=== PATIENT | male | born 2005 | race Caucasian/White ===

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

== ENCOUNTER 2023-09-16 15:14 | Emergency (ER) | payer OTHER ==
[~2023-09-16] VITALS: Ht 167.6 cm; Wt 74.8 kg
[2023-09-16] MEDS ORDERED: CYCL10 (15:31)
[2023-09-16] MEDS ORDERED: IBUP600 (15:31)
[2023-09-16] MEDS ORDERED: MIRALAX1714 (15:31)
[2023-09-16] MEDS ORDERED: DIAZ5 (15:31)
[2023-09-16 16:32] VITALS: BP 105/77
== END 2023-09-16 16:33 | disposition home or self-care (01) ==
LOC: ER 15:14
DX: K64.9 Unspecified hemorrhoids (principal); Z79.899 Other long term (current) drug therapy
CPT/HCPCS: 99282

== ENCOUNTER 2023-11-17 16:29 | Emergency (ER) | payer OTHER ==
[~2023-11-17] VITALS: Ht 167.6 cm; Wt 72.6 kg
[~2023-11-17 16:29] MED LIST changes: +CYCL10; +DIAZ5; +IBUP600; +MIRALAX1714
[2023-11-17 17:06] LABS: BASOPHILS ABSOLUTE AUTO 0.03 K/mm3 (0.00-0.23); BASOPHILS PERCENT AUTO 1 % (0-2); EOSINOPHILS ABSOLUTE AUTO 0.07 K/mm3 (0.00-0.68); EOSINOPHILS PERCENT AUTO 2 % (0-6); Hematocrit 38.3 % (37.0-53.0); Hemoglobin 12.4 g/dL (13.5-17.5); IMMATURE GRAN ABSOLUTE AUTO 0.01 K/mm3 (0.00-0.10); IMMATURE GRAN PERCENT AUTO 0 % (0-1); LYMPHOCYTES ABSOLUTE AUTO 1.08 K/mm3 (0.84-5.20); LYMPHOCYTES PERCENT AUTO 26 % (21-46); MONOCYTES ABSOLUTE AUTO 0.24 K/mm3 (0.16-1.47); MONOCYTES PERCENT AUTO 6 % (4-13); Mean Corpuscular HGB 29.3 pg (26.0-34.0); Mean Corpuscular HGB Conc 32.4 g/dL (31.5-36.5); Mean Corpuscular Volume 91 fL (80-100); Mean Platelet Volume 10.1 fL (9.1-12.4); NEUTROPHILS ABSOLUTE AUTO 2.68 K/mm3 (1.96-9.15); NEUTROPHILS PERCENT AUTO 65 % (41-73); Platelet Count 135 K/mm3 (150-400); RDW Standard Deviation 53.3 fL (35.1-46.3); Red Blood Cell Count 4.23 M/mm3 (4.30-5.90); White Blood Cell Count 4.11 K/mm3 (4.00-11.30)
[2023-11-17 17:30] LABS: Albumin/Globulin Ratio 1.1 (0.8-1.8); Bilirubin, Total 0.7 mg/dL (0.1-1.0); Bun/Creatinine Ratio 22.5 (12.0-20.0); Calcium, Blood 9.6 mg/dL (8.5-10.1); Creatinine, Blood 0.58 mg/dL (0.60-1.20); Globulin, Blood 3.6 g/dL (2.2-4.0); Total Protein, Blood 7.6 g/dL (6.4-8.2)
[2023-11-17] MEDS ORDERED: Lactated Ringer's 1,000 ML IV ONE (18:15)
[2023-11-17 19:11] LABS: Influenza A, PCR NEGATIVE (NEGATIVE); Influenza B, PCR NEGATIVE (NEGATIVE); Resp Syncytial Virus, PCR NEGATIVE (NEGATIVE); SARS-Cov-2 (COVID-19) PCR, MMC NEGATIVE (NEGATIVE)
[2023-11-17] MEDS ORDERED: Lidocaine 2% Jelly Uro-Jet UR ONE (20:20)
[2023-11-17 20:35] LABS: Source, Urine Clean Catch
[2023-11-17 20:37] LABS: Bilirubin, Urine Neg (Neg); Blood, Urine 4+ (Neg); Glucose Qualitative, Urine Neg (Neg); Ketones, Urine 2+ (Neg); Leukocyte Esterase, Urine Neg (Neg); Nitrite, Urine Neg (Neg); Protein, Urine Neg (Neg); Urobilinogen, Urine NORM (Normal)
[2023-11-17 20:54] LABS: Appearance, Urine Clear (Clear); Color, Urine Pale Yellow (P-Yellow)
[2023-11-17 20:56] LABS: Bacteria Many /hpf; Squamous Epithelial Cells Rare /hpf (Few)
[2023-11-17 23:30] VITALS: BP 136/88
== END 2023-11-17 23:41 | disposition short-term general hospital (02) ==
LOC: ER 16:29
PROVIDERS: Emergency Medicine; Student in an Organized Health Care Education/Training Program
DX: R33.9 Retention of urine, unspecified (principal); R53.1 Weakness; D64.9 Anemia, unspecified; D69.6 Thrombocytopenia, unspecified; Q27.39 Arteriovenous malformation, other site; Z79.899 Other long term (current) drug therapy; Z99.3 Dependence on wheelchair
CPT/HCPCS: 0241U; 51702; 71046; 80053; 81001; 83735; 83880; 84484; 85025; 87086; 93005; 93010; 93971; 96360; 96361; 99285-25; J7120

== ENCOUNTER 2023-12-08 13:53 | Emergency (ER) | payer OTHER ==
[~2023-12-08] VITALS: Ht 167.6 cm; Wt 79.4 kg
[2023-12-08] MEDS ORDERED: NS 1,000 ML IV ONE (14:25)
[2023-12-08] MEDS ORDERED: Ondansetron HCl 2 MG / ML 2ML Vial IV PRN (14:25)
[2023-12-08 14:40] LABS: BASOPHILS ABSOLUTE AUTO 0.03 K/mm3 (0.00-0.23); BASOPHILS PERCENT AUTO 1 % (0-2); EOSINOPHILS PERCENT AUTO 0 % (0-6); Hematocrit 37.6 % (37.0-53.0); Hemoglobin 12.3 g/dL (13.5-17.5); IMMATURE GRAN ABSOLUTE AUTO 0.01 K/mm3 (0.00-0.10); IMMATURE GRAN PERCENT AUTO 0 % (0-1); LYMPHOCYTES ABSOLUTE AUTO 0.24 K/mm3 (0.84-5.20); LYMPHOCYTES PERCENT AUTO 4 % (21-46); MONOCYTES ABSOLUTE AUTO 0.19 K/mm3 (0.16-1.47); MONOCYTES PERCENT AUTO 3 % (4-13); Mean Corpuscular HGB 29.3 pg (26.0-34.0); Mean Corpuscular HGB Conc 32.7 g/dL (31.5-36.5); Mean Corpuscular Volume 90 fL (80-100); Mean Platelet Volume 9.9 fL (9.1-12.4); NEUTROPHILS ABSOLUTE AUTO 5.14 K/mm3 (1.96-9.15); NEUTROPHILS PERCENT AUTO 92 % (41-73); Platelet Count 140 K/mm3 (150-400); RDW Coefficient Variation 14.4 % (11.7-14.2); RDW Standard Deviation 47.5 fL (35.1-46.3); White Blood Cell Count 5.61 K/mm3 (4.00-11.30)
[2023-12-08 15:13] LABS: Albumin, Blood 4.2 g/dL (3.4-5.0); Albumin/Globulin Ratio 1.1 (0.8-1.8); Bilirubin, Total 1.5 mg/dL (0.1-1.0); Bun/Creatinine Ratio 31.3 (12.0-20.0); Calcium, Blood 9.4 mg/dL (8.5-10.1); Creatinine, Blood 0.64 mg/dL (0.60-1.20); Globulin, Blood 3.7 g/dL (2.2-4.0); Potassium, Blood 3.9 mmol/L (3.5-5.5); Total Protein, Blood 7.9 g/dL (6.4-8.2)
[2023-12-08 16:46] VITALS: BP 124/75
[2023-12-08] MEDS ORDERED: Acetaminophen 500 MG Tab PO ONE (17:15)
[2023-12-08] MEDS ORDERED: ONDA4ODT MM (18:01)
[2023-12-08] MEDS ORDERED: Tamiflu75 MG PO (18:11)
[2023-12-08] MEDS ORDERED: RX Prepack 2 Tabs Ondansetron ODT 4MG UD ONE (18:15)
[2023-12-08] MEDS ORDERED: Oseltamivir Phosphate 75 MG Cap PO ONE (18:15)
== END 2023-12-08 19:03 | disposition home or self-care (01) ==
LOC: ER 13:53
PROVIDERS: Emergency Medicine
DX: J10.1 Influenza due to other identified influenza virus with other respiratory manifestations (principal); Z79.899 Other long term (current) drug therapy
CPT/HCPCS: 80053; 83605; 85025; 96361; 96374; 99284-25; A9270; J2405; J7030

== ENCOUNTER 2023-12-31 15:34 | Observation (INO) | payer OTHER ==
[~2023-12-31] VITALS: Ht 167.6 cm; Wt 73.6 kg
[~2023-12-31 15:34] MED LIST changes: +Enoxaparin 40 MG/0.4 ML SYR SC SCH; +ONDA4ODT MM; +Tamiflu75 MG PO
[2023-12-31 16:41] LABS: BASOPHILS ABSOLUTE AUTO 0.04 K/mm3 (0.00-0.23); BASOPHILS PERCENT AUTO 1 % (0-2); EOSINOPHILS ABSOLUTE AUTO 0.02 K/mm3 (0.00-0.68); EOSINOPHILS PERCENT AUTO 1 % (0-6); Hematocrit 36.7 % (37.0-53.0); IMMATURE GRAN ABSOLUTE AUTO 0.01 K/mm3 (0.00-0.10); IMMATURE GRAN PERCENT AUTO 0 % (0-1); LYMPHOCYTES ABSOLUTE AUTO 1.07 K/mm3 (0.84-5.20); LYMPHOCYTES PERCENT AUTO 27 % (21-46); MONOCYTES ABSOLUTE AUTO 0.16 K/mm3 (0.16-1.47); MONOCYTES PERCENT AUTO 4 % (4-13); Mean Corpuscular HGB 30.2 pg (26.0-34.0); Mean Corpuscular HGB Conc 32.7 g/dL (31.5-36.5); Mean Corpuscular Volume 92 fL (80-100); Mean Platelet Volume 9.9 fL (9.1-12.4); NEUTROPHILS ABSOLUTE AUTO 2.74 K/mm3 (1.96-9.15); NEUTROPHILS PERCENT AUTO 68 % (41-73); Platelet Count 126 K/mm3 (150-400); RDW Coefficient Variation 14.4 % (11.7-14.2); RDW Standard Deviation 48.6 fL (35.1-46.3); Red Blood Cell Count 3.98 M/mm3 (4.30-5.90); White Blood Cell Count 4.04 K/mm3 (4.00-11.30)
[2023-12-31 17:10] LABS: Albumin, Blood 3.5 g/dL (3.4-5.0); Albumin/Globulin Ratio 0.9 (0.8-1.8); Bilirubin, Total 0.6 mg/dL (0.1-1.0); Bun/Creatinine Ratio 29.7 (12.0-20.0); Calcium, Blood 8.8 mg/dL (8.5-10.1); Creatinine, Blood 0.51 mg/dL (0.60-1.20); Globulin, Blood 3.8 g/dL (2.2-4.0); Potassium, Blood 3.8 mmol/L (3.5-5.5); Total Protein, Blood 7.3 g/dL (6.4-8.2)
[2023-12-31 19:56] LABS: Source, Urine Clean Catch
[2023-12-31 20:02] LABS: Appearance, Urine Turbid (Clear); Bilirubin, Urine Neg (Neg); Blood, Urine 5+ (Neg); Color, Urine Yellow (P-Yellow); Glucose Qualitative, Urine Neg (Neg); Ketones, Urine Neg (Neg); Leukocyte Esterase, Urine 3+ (Neg); Nitrite, Urine Neg (Neg); Protein, Urine 2+ (Neg); Urobilinogen, Urine NORM (Normal)
[2023-12-31 20:14] LABS: White Blood Cells, Urine 50-100 /hpf (0-5)
[2023-12-31 20:15] LABS: Amorphous Heavy (0-Heavy); Bacteria Many /hpf; Mucus Light (0-Heavy); Squamous Epithelial Cells Many /hpf (Few); Transitional Epithelial Cells Rare /hpf (0-Rare)
[2023-12-31] MEDS ORDERED: ZOLOFT50 MG PO (20:24)
[2023-12-31] MEDS ORDERED: MEKINIST0.5 MG PO (20:25)
[2023-12-31] MEDS ORDERED: CefTRIAXone Sodium 1,000 MG in NS 100 ML IV ONE (21:15)
[2023-12-31] MEDS ORDERED: Acetaminophen 325 MG TABLET PO PRN (23:30)
[2023-12-31] MEDS ORDERED: NS 1,000 ML IV SCH (23:30)
[2023-12-31] MEDS ORDERED: Ondansetron HCl 2 MG / ML 2ML Vial IV PRN (23:30)
[2023-12-31] MEDS ORDERED: FLU VACC TS2024-25(6MOS UP)/PF 45 MCG/0.5 ML SYRINGE IM SCH (23:30)
[2023-12-31] MEDS ORDERED: Enoxaparin 40 MG/0.4 ML SYR SC SCH (23:45)
[2024-01-01 01:08] VITALS: BP 121/79
--- NOTE | 2024-01-01 04:39 | NUR ---
SHIFT SUMMARY TIMOTHY WAS ALERT AND FULLY ORIENTED WHEN HE WAS ADMITTED FROM THE ED. PT WITH AVM TO SPINE, AND NEW ONSET INCONTINENCE OF BOWEL AND BLADDER. PT IS WEAK TO BLE, ABLE TO AMBULATE W/ FWW AND 1P ASSIST W GB. NO INCONTINENT EVENTS YET SINCE ADMITTING. PT DENIES ACUTE DISTRESS/ PAIN. PT ADMIT COMPLETE, PT MOTHER AT BEDSIDE TONIGHT. NO ACUTE EVENTS TONIGHT. PT AWAITING MRI IN AM.
[2024-01-01 04:40] VITALS: BP 129/75
[2024-01-01 04:50] LABS: BASOPHILS ABSOLUTE AUTO 0.03 K/mm3 (0.00-0.23); BASOPHILS PERCENT AUTO 1 % (0-2); EOSINOPHILS ABSOLUTE AUTO 0.04 K/mm3 (0.00-0.68); EOSINOPHILS PERCENT AUTO 1 % (0-6); Hematocrit 34.2 % (37.0-53.0); Hemoglobin 10.9 g/dL (13.5-17.5); IMMATURE GRAN ABSOLUTE AUTO 0.01 K/mm3 (0.00-0.10); IMMATURE GRAN PERCENT AUTO 0 % (0-1); LYMPHOCYTES ABSOLUTE AUTO 1.15 K/mm3 (0.84-5.20); LYMPHOCYTES PERCENT AUTO 33 % (21-46); MONOCYTES ABSOLUTE AUTO 0.18 K/mm3 (0.16-1.47); MONOCYTES PERCENT AUTO 5 % (4-13); Mean Corpuscular HGB 29.1 pg (26.0-34.0); Mean Corpuscular HGB Conc 31.9 g/dL (31.5-36.5); Mean Corpuscular Volume 91 fL (80-100); Mean Platelet Volume 10.1 fL (9.1-12.4); NEUTROPHILS PERCENT AUTO 60 % (41-73); Platelet Count 124 K/mm3 (150-400); RDW Coefficient Variation 14.3 % (11.7-14.2); Red Blood Cell Count 3.74 M/mm3 (4.30-5.90); White Blood Cell Count 3.51 K/mm3 (4.00-11.30)
[2024-01-01 05:12] LABS: Albumin, Blood 3.3 g/dL (3.4-5.0); Bilirubin, Total 0.5 mg/dL (0.1-1.0); Calcium, Blood 8.8 mg/dL (8.5-10.1); Creatinine, Blood 0.55 mg/dL (0.60-1.20); Globulin, Blood 3.3 g/dL (2.2-4.0); Total Protein, Blood 6.6 g/dL (6.4-8.2)
[2024-01-01 07:20] VITALS: BP 119/69
[2024-01-01] MEDS ORDERED: Sertraline HCl 50 MG Tab PO SCH (09:00)
[2024-01-01] MEDS ORDERED: TRAMETINIB PO SCH ×2 (09:00→12:00)
--- NOTE | 2024-01-01 10:15 | NUR ---
DR REED IN TO SEE PT.
[2024-01-01 15:32] VITALS: BP 122/73
--- NOTE | 2024-01-01 17:20 | NUR ---
SUMMARY NO ACUTE CHANGES T/O SHIFT. PT HAS BEEN RESTING IN BED T/O DAY WITH IV FLUIDS INFUSING PER ORDERS. TOLERATING REGULAR DIET. HAD VOID AND BM THIS SHIFT. PLAN FOR MRI THIS EVENING. CALL LIGHT IN REACH.
--- NOTE | 2024-01-01 18:20 | NUR ---
PT TO MRI ACADEMIC ADMINISTRATOR NOTIFIED.
[2024-01-01 20:29] VITALS: BP 140/86
[2024-01-01] MEDS ORDERED: CefTRIAXone Sodium 1,000 MG in NS 100 ML IV SCH (21:00)
[2024-01-02 04:33] VITALS: BP 130/79
--- NOTE | 2024-01-02 05:13 | NUR ---
SHIFT SUMMARY TIMOTHY WAS ALERT AND FULLY ORIENTED ON ASSESMENT. PT WAS HAVING MRI PERFORMED AT START OF SHIFT. NO INCONTINENT EPISODES TONIGHT SO FAR. DR ESTRADA SAW THE PT TO DISCUS MRI, RESULTS SHARED WITH [facility], FINDINGS ARE CONSISITENT WITH PREVIOUS MRI'S, PT GIVEN OPTION TO TRANSFER TO [facility], OPTING TO DISCHARGE HOME INSTEAD AND FOLLOW UP WITH APPOINTMENT.
[2024-01-02 07:22] VITALS: BP 118/74
[2024-01-02] MEDS ORDERED: TRAMETINIB PO SCH (09:00)
[2024-01-02] MEDS ORDERED: Amoxicillin500 MG PO (10:42)
--- NOTE | 2024-01-02 11:08 | NUR ---
DISCHARGE SUMMARY PT DID WELL TODAY AND FELT READY TO DISCHARGE HOME. PT A/OX4, MAGY PO INTAKE WELL. NO ISSUES WITH INCONTINENCE THIS SHIFT. NO PAIN OR NAUSEA. PT WILL SCHEDULE F/U APPT WITH PCP. [facility]. PT AND MOM VERBALIZE UNDERSTANDING OF D/C INST. PT ESCORTED TO LOBBY VIA WC.
== END 2024-01-02 11:20 | disposition home or self-care (01) ==
LOC: ER 15:34 → ERHOLD 15:35 → SURS 15:35
PROVIDERS: Student in an Organized Health Care Education/Training Program; ADMIT Internal Medicine
DX: Q27.39 Arteriovenous malformation, other site (principal); I89.0 Lymphedema, not elsewhere classified; R82.81 Pyuria; M48.05 Spinal stenosis, thoracolumbar region; Z79.899 Other long term (current) drug therapy
CPT/HCPCS: 36415; 72157; 72158; 80053; 81001; 85025; 87086; 87147; 96365; 96366; 96372; 99284-25; A9270; A9579; G0378; J0696; J1650; J7030

== ENCOUNTER → 2024-01-08 | Outpatient (CLI) | payer OTHER ==
[~2024-01-08] MED LIST changes: +Amoxicillin500 MG PO; -Enoxaparin 40 MG/0.4 ML SYR SC SCH; +MEKINIST0.5 MG PO; +ZOLOFT50 MG PO
== END ==
LOC: LAB SHORT 11:39 → LAB 11:39
DX: N39.0 Urinary tract infection, site not specified (principal)
CPT/HCPCS: 87086

== ENCOUNTER 2024-02-05 20:24 | Inpatient (IN) | payer OTHER ==
[~2024-02-05] VITALS: Ht 167.6 cm; Wt 74.2 kg
[2024-02-05 21:18] LABS: Source, Urine Clean Catch
[2024-02-05 21:21] LABS: Bilirubin, Urine Neg (Neg); Blood, Urine 5+ (Neg); Color, Urine Yellow (P-Yellow); Glucose Qualitative, Urine Neg (Neg); Ketones, Urine Neg (Neg); Leukocyte Esterase, Urine 3+ (Neg); Nitrite, Urine Neg (Neg); Protein, Urine 2+ (Neg); Urobilinogen, Urine NORM (Normal)
[2024-02-05 21:22] LABS: Appearance, Urine Cloudy (Clear)
[2024-02-05 21:27] LABS: Bacteria Mod /hpf; Squamous Epithelial Cells Few /hpf (Few); White Blood Cells, Urine 25-50 /hpf (0-5)
[2024-02-06 01:43] LABS: BASOPHILS ABSOLUTE AUTO 0.03 K/mm3 (0.00-0.23); BASOPHILS PERCENT AUTO 1 % (0-2); EOSINOPHILS ABSOLUTE AUTO 0.01 K/mm3 (0.00-0.68); EOSINOPHILS PERCENT AUTO 0 % (0-6); Hematocrit 36.7 % (37.0-53.0); IMMATURE GRAN ABSOLUTE AUTO 0.01 K/mm3 (0.00-0.10); IMMATURE GRAN PERCENT AUTO 0 % (0-1); LYMPHOCYTES PERCENT AUTO 20 % (21-46); MONOCYTES ABSOLUTE AUTO 0.35 K/mm3 (0.16-1.47); MONOCYTES PERCENT AUTO 5 % (4-13); Mean Corpuscular HGB 30.7 pg (26.0-34.0); Mean Corpuscular HGB Conc 32.7 g/dL (31.5-36.5); Mean Corpuscular Volume 94 fL (80-100); Mean Platelet Volume 10.2 fL (9.1-12.4); NEUTROPHILS ABSOLUTE AUTO 4.73 K/mm3 (1.96-9.15); NEUTROPHILS PERCENT AUTO 74 % (41-73); Platelet Count 120 K/mm3 (150-400); RDW Coefficient Variation 14.9 % (11.7-14.2); RDW Standard Deviation 51.4 fL (35.1-46.3); Red Blood Cell Count 3.91 M/mm3 (4.30-5.90); White Blood Cell Count 6.43 K/mm3 (4.00-11.30)
[2024-02-06 01:55] LABS: International Normalized Ratio 1.17; Prothrombin Time Results 12.4 Sec (9.7-11.5)
[2024-02-06 02:06] LABS: Albumin, Blood 3.5 g/dL (3.4-5.0); Albumin/Globulin Ratio 0.9 (0.8-1.8); Bilirubin, Total 1.6 mg/dL (0.1-1.0); Bun/Creatinine Ratio 18.8 (12.0-20.0); Calcium, Blood 8.7 mg/dL (8.5-10.1); Creatinine, Blood 0.59 mg/dL (0.60-1.20); Globulin, Blood 3.9 g/dL (2.2-4.0); Potassium, Blood 3.5 mmol/L (3.5-5.5); Total Protein, Blood 7.4 g/dL (6.4-8.2)
[2024-02-06] MEDS ORDERED: CefTRIAXone Sodium 2,000 MG in NS 100 ML IV ONE (02:30)
[2024-02-06] MEDS ORDERED: FLU VACC TS2024-25(6MOS UP)/PF 45 MCG/0.5 ML SYRINGE IM ONE (05:30)
[2024-02-06] MEDS ORDERED: Polyethylene Glycol 3350 17 gm PO PRN (07:25)
[2024-02-06] MEDS ORDERED: Acetaminophen 500 MG Tab PO PRN (07:25)
[2024-02-06] MEDS ORDERED: Cholecalciferol 1000 Unit Tablet (=25MCG) PO SCH (09:00)
[2024-02-06] MEDS ORDERED: Lactobacil 2-S.Thermo-Bifido 1 1 Cap PO SCH (09:00)
[2024-02-06] MEDS ORDERED: TRAMETINIB PO SCH (10:00)
[2024-02-06 12:51] VITALS: BP 98/61
--- NOTE | 2024-02-06 12:58 | NUR ---
ADMIT ER ADMIT WITH UTI. ARRIVAL AT APPROX 1245. PT A+O X4. PT REPORTS HE IS ABLE TO STAND/PIVOT TRANSFER WITH 1 ASSIST USING FWW. PT REPORTS HE IS CURRENTLY CONTINENT OF URINE AND STOOL. PT DENIES PAIN WITH URINATION, BUT REPORTS GROIN AREA IS SWOLLEN. BLE NOTED TO BE EDEMATOUS. PT DENIES ANY OTHER COMPLAINTS. ORIENTED TO ROOM AND CALL LIGHT. PT REPORTS MOTHER WILL BE BACK LATER.
[2024-02-06 14:45] VITALS: BP 105/63
--- NOTE | 2024-02-06 17:09 | NUR ---
PT HAD BANDAID ON R 4TH DIGIT. PT REMOVED BANDAID AND FINGER TIP NOTED TO BE RED, SWOLLEN, AND DRAINING CLEAR FLUID. FINGER NAIL ALSO APPEARS TO NOT BE THERE. PT STS HE HAS HABIT OF BITING HIS NAILS, SO HE GETS SMALL WOUNDS ON HIS FINGERS. DR REED NOTIFIED AND WILL SOAK FINGER IN WARM WATER PERIODICALLY AND KEEP ELEVATED. PT ALSO CONSENTS FOR PHOTOS AND PHOTOS TAKEN AND PLACED IN PAPER CHART. NO OTHER CONCERNS AT THIS TIME.
--- NOTE | 2024-02-06 18:28 | NUR ---
SHIFT SUMMARY PT WAS ADMITTED FROM THE ED TODAY FOR UTI WITH HEMATURIA. PT A/OX4. PT HAS BEEN UP TO VOID USING WALKER (BASELINE) MULTIPLE TIMES VOIDING SMALL AMOUNTS INTO TOILET. PT HAS DIFFICULTY USING URINAL WHILE SITTING IN BED OR STANDING AT BEDSIDE. PT HAS NO PAIN OR OBVIOUS BLOOD IN URINE. HOSPITALIST EVALUATED PT AT BEDSIDE AND PT WAS ASKING ABOUT DISCHARGE AND SEEMED TO BE JB TO LEAVE HOSPITAL ALREADY. VITALS ARE STABLE. DISCHARGE PLAN ONGOING AND CALL LIGHT IN REACH.
[2024-02-06 20:53] VITALS: BP 117/74
[2024-02-06] MEDS ORDERED: Sertraline HCl 50 MG Tab PO SCH (21:00)
[2024-02-07 02:36] VITALS: BP 114/64
--- NOTE | 2024-02-07 05:19 | NUR ---
SHIFT SUMMARY TIMOTHY WAS ALERT AND FULLY ORIENTED ON ASSESMENT. PT WAS WITH FAMILY AT START OF SHIFT. LOW URINE OUTPUT, URINE WAS DARK, NOT NOTED TO BE BLOOD TINGED. PT HAS DEEP EDEMA TO BLE'S. PT ALSO HAS VERY EXTENSIVE REDNESS AND SWELLING BEHIND HEAD OF PENIS, PLAN OF CARE FOR THIS IS UNCLEAR. WILL FOLLOW UP WITH DAYSHIFT. NO ACUTE EVENTS TONIGHT, NO CHANGES TO PT CONDITION.
[2024-02-07] MEDS ORDERED: CefTRIAXone Sodium 1,000 MG in NS 100 ML IV SCH (06:00)
[2024-02-07 07:36] VITALS: BP 114/63
[2024-02-07] MEDS ORDERED: Enoxaparin 40 MG/0.4 ML SYR SC SCH (09:00)
[2024-02-07 14:10] VITALS: BP 129/68
[2024-02-07] MEDS ORDERED: CEPH500 PO (15:00)
--- NOTE | 2024-02-07 15:35 | NUR ---
DISCHARGE NOTE PT IS HAVING CONTINENT VOIDS, ABLE TO VOID VOLUNTARILY, POST VOID RESIDUAL BLADDER SCANS UNDER 200ML. NO BLOOD VISIBLE IN URINE, PT DENIES PAIN WHEN URINATING. TIP OF PENIS STILL RED AND SWOLLEN, DR REED ASSESSED AT BEDSIDE AND IS AWARE. CHARGE NURSE MARIUM REVIEWED DC INSTRUCTIONS W/ PT AND MOTHER, COPY GIVEN TO PT. NEW PRESCRIPTIONS CALLED TO [facility] BY MARIUM ZARATE. VSS. PT DC'D VIA WC TO PRIVATE RIDE HOME IN STABLE CONDITION W/ BELONGINGS.
== END 2024-02-07 15:33 | disposition home or self-care (01) | DRG 690 ==
LOC: ER 20:24 → ERHOLD 20:25 → SURS 02-06 12:40
PROVIDERS: Emergency Medicine; Student in an Organized Health Care Education/Training Program; ADMIT Internal Medicine
DX: N39.0 Urinary tract infection, site not specified (principal); Q82.0 Hereditary lymphedema; D64.81 Anemia due to antineoplastic chemotherapy; D69.59 Other secondary thrombocytopenia; T45.1X5A Adverse effect of antineoplastic and immunosuppressive drugs, initial encounter; L03.019 Cellulitis of unspecified finger; N48.1 Balanitis; R31.9 Hematuria, unspecified; Q27.8 Other specified congenital malformations of peripheral vascular system; Z98.890 Other specified postprocedural states; Z79.899 Other long term (current) drug therapy
CPT/HCPCS: 36415; 74176; 80053; 81001; 83605; 85025; 85610; 87040; 87086; 87147; 96365; 99285-25; A9270; G0378; J0696; J1650

== ENCOUNTER → 2024-02-09 | Outpatient (CLI) | payer OTHER ==
[~2024-02-09] MED LIST changes: +CEPH500 PO
== END | disposition home or self-care (01) ==
LOC: LAB 14:03 → LAB SHORT 14:03
DX: L08.9 Local infection of the skin and subcutaneous tissue, unspecified (principal)
CPT/HCPCS: 87070; 87077; 87186; 87205

== ENCOUNTER → 2024-03-08 | Outpatient (CLI) | payer OTHER | LOC: LAB 14:42 → LAB SHORT 14:42 | DX: R31.9 Hematuria, unspecified (principal) | CPT/HCPCS: 87086 ==

== ENCOUNTER 2024-05-18 19:12 | Emergency (ER) | payer OTHER ==
[~2024-05-18] VITALS: Ht 167.6 cm; Wt 70.8 kg
[2024-05-18 19:31] VITALS: BP 138/88
[2024-05-18 20:10] LABS: BASOPHILS ABSOLUTE AUTO 0.03 K/mm3 (0.00-0.23); BASOPHILS PERCENT AUTO 0 % (0-2); EOSINOPHILS ABSOLUTE AUTO 0.01 K/mm3 (0.00-0.68); EOSINOPHILS PERCENT AUTO 0 % (0-6); IMMATURE GRAN ABSOLUTE AUTO 0.02 K/mm3 (0.00-0.10); IMMATURE GRAN PERCENT AUTO 0 % (0-1); LYMPHOCYTES ABSOLUTE AUTO 0.82 K/mm3 (0.84-5.20); LYMPHOCYTES PERCENT AUTO 11 % (21-46); MONOCYTES ABSOLUTE AUTO 0.13 K/mm3 (0.16-1.47); MONOCYTES PERCENT AUTO 2 % (4-13); Mean Corpuscular HGB 30.4 pg (26.0-34.0); Mean Corpuscular HGB Conc 34.2 g/dL (31.5-36.5); Mean Corpuscular Volume 89 fL (80-100); Mean Platelet Volume 9.1 fL (9.1-12.4); NEUTROPHILS ABSOLUTE AUTO 6.69 K/mm3 (1.96-9.15); NEUTROPHILS PERCENT AUTO 87 % (41-73); Platelet Count 166 K/mm3 (150-400); RDW Coefficient Variation 13.1 % (11.7-14.2); RDW Standard Deviation 42.6 fL (35.1-46.3); Red Blood Cell Count 4.28 M/mm3 (4.30-5.90)
[2024-05-18 20:31] LABS: Albumin, Blood 3.7 g/dL (3.4-5.0); Albumin/Globulin Ratio 0.9 (0.8-1.8); Bilirubin, Total 0.6 mg/dL (0.1-1.0); Bun/Creatinine Ratio 17.8 (12.0-20.0); Calcium, Blood 8.7 mg/dL (8.5-10.1); Creatinine, Blood 0.68 mg/dL (0.60-1.20); Globulin, Blood 4.3 g/dL (2.2-4.0); Potassium, Blood 3.5 mmol/L (3.5-5.5)
== END 2024-05-18 21:27 | disposition home or self-care (01) ==
LOC: ER 19:12
PROVIDERS: Student in an Organized Health Care Education/Training Program
DX: R51.9 Headache, unspecified (principal); Z79.1 Long term (current) use of non-steroidal anti-inflammatories (NSAID); Z79.899 Other long term (current) drug therapy
CPT/HCPCS: 70450; 80053; 85025; 99284-25

== ENCOUNTER 2024-08-12 20:13 | Emergency (ER) | payer OTHER ==
[~2024-08-12] VITALS: Ht 167.6 cm; Wt 75.3 kg
[2024-08-12 20:38] VITALS: BP 126/97
[2024-08-12 21:06] LABS: BASOPHILS ABSOLUTE AUTO 0.05 K/mm3 (0.00-0.23); BASOPHILS PERCENT AUTO 1 % (0-2); EOSINOPHILS ABSOLUTE AUTO 0.05 K/mm3 (0.00-0.68); EOSINOPHILS PERCENT AUTO 1 % (0-6); Hemoglobin 12.6 g/dL (13.5-17.5); IMMATURE GRAN ABSOLUTE AUTO 0.01 K/mm3 (0.00-0.10); IMMATURE GRAN PERCENT AUTO 0 % (0-1); LYMPHOCYTES ABSOLUTE AUTO 1.82 K/mm3 (0.84-5.20); LYMPHOCYTES PERCENT AUTO 32 % (21-46); MONOCYTES ABSOLUTE AUTO 0.42 K/mm3 (0.16-1.47); MONOCYTES PERCENT AUTO 7 % (4-13); Mean Corpuscular HGB 30.4 pg (26.0-34.0); Mean Corpuscular HGB Conc 34.1 g/dL (31.5-36.5); Mean Corpuscular Volume 89 fL (80-100); Mean Platelet Volume 9.6 fL (9.1-12.4); NEUTROPHILS ABSOLUTE AUTO 3.33 K/mm3 (1.96-9.15); NEUTROPHILS PERCENT AUTO 59 % (41-73); Platelet Count 169 K/mm3 (150-400); RDW Coefficient Variation 12.3 % (11.7-14.2); RDW Standard Deviation 39.9 fL (35.1-46.3); Red Blood Cell Count 4.14 M/mm3 (4.30-5.90); White Blood Cell Count 5.68 K/mm3 (4.00-11.30)
[2024-08-12 21:25] LABS: Albumin, Blood 3.6 g/dL (3.4-5.0); Albumin/Globulin Ratio 0.8 (0.8-1.8); Bilirubin, Total 0.3 mg/dL (0.1-1.0); Bun/Creatinine Ratio 22.5 (12.0-20.0); Calcium, Blood 9.3 mg/dL (8.5-10.1); Creatinine, Blood 0.84 mg/dL (0.60-1.20); Globulin, Blood 4.3 g/dL (2.2-4.0); Potassium, Blood 3.8 mmol/L (3.5-5.5); Total Protein, Blood 7.9 g/dL (6.4-8.2)
== END 2024-08-13 01:43 | disposition left against medical advice (07) ==
LOC: ER 20:13
PROVIDERS: Student in an Organized Health Care Education/Training Program
DX: R07.89 Other chest pain (principal); Z53.29 Procedure and treatment not carried out because of patient's decision for other reasons
CPT/HCPCS: 71046; 80053; 83690; 84484; 85025; 93005; 93010; 99282-25

== ENCOUNTER 2024-08-24 06:56 | Day surgery (SDC) | payer OTHER ==
[~2024-08-24] VITALS: Ht 167.6 cm; Wt 74.8 kg
[~2024-08-24 06:56] MED LIST changes: +[UNRECOGNIZED DRUG - OTHER]
[2024-08-24 09:02] VITALS: BP 117/73
--- NOTE | 2024-08-24 09:16 | NUR ---
08/24/24 0916 TIMOTHY MI PT MOTHER PRESENT FOR ANTIONE ADAMS POSTOP. RDS
== END 2024-08-24 09:16 | disposition home or self-care (01) ==
LOC: ORSCSDS 06:56
PROVIDERS: Specialist
PROC: 0DBE8ZX Excision of Large Intestine, Via Natural or Artificial Opening Endoscopic, Diagnostic (ICD-10-PCS; principal; 2024-08-24 08:00)
PROC: 0DB98ZX Excision of Duodenum, Via Natural or Artificial Opening Endoscopic, Diagnostic (ICD-10-PCS; principal; 2024-08-24 08:00)
DX: K62.5 Hemorrhage of anus and rectum (principal); R19.7 Diarrhea, unspecified; K64.8 Other hemorrhoids; Q87.2 Congenital malformation syndromes predominantly involving limbs
CPT/HCPCS: 88305; J2704; J7120

== ENCOUNTER 2024-10-22 21:42 | Emergency (ER) | payer OTHER ==
[~2024-10-22] VITALS: Ht 167.6 cm; Wt 80.7 kg
[2024-10-22 21:47] VITALS: BP 126/75
== END 2024-10-22 22:58 | disposition home or self-care (01) ==
LOC: ER 21:42
DX: F41.9 Anxiety disorder, unspecified (principal); Z79.899 Other long term (current) drug therapy
CPT/HCPCS: 99282; A9270

== ENCOUNTER 2025-01-21 19:16 | Emergency (ER) | payer OTHER ==
[~2025-01-21] VITALS: Ht 167.6 cm; Wt 83.9 kg
[2025-01-21 20:45] LABS: BASOPHILS ABSOLUTE AUTO 0.06 K/mm3 (0.00-0.23); BASOPHILS PERCENT AUTO 1 % (0-2); EOSINOPHILS ABSOLUTE AUTO 0.14 K/mm3 (0.00-0.68); EOSINOPHILS PERCENT AUTO 3 % (0-6); Hematocrit 38.4 % (37.0-53.0); Hemoglobin 12.9 g/dL (13.5-17.5); IMMATURE GRAN ABSOLUTE AUTO 0.01 K/mm3 (0.00-0.10); IMMATURE GRAN PERCENT AUTO 0 % (0-1); LYMPHOCYTES ABSOLUTE AUTO 1.67 K/mm3 (0.84-5.20); LYMPHOCYTES PERCENT AUTO 37 % (21-46); MONOCYTES ABSOLUTE AUTO 0.24 K/mm3 (0.16-1.47); MONOCYTES PERCENT AUTO 5 % (4-13); Mean Corpuscular HGB Conc 33.6 g/dL (31.5-36.5); Mean Corpuscular Volume 87 fL (80-100); NEUTROPHILS ABSOLUTE AUTO 2.34 K/mm3 (1.96-9.15); NEUTROPHILS PERCENT AUTO 53 % (41-73); NRBC ABSOLUTE 0.00 K/mm3 (0.00-0.02); NRBC Auto 0.0 /100 WBC (0.0-0.2); Platelet Count 167 K/mm3 (150-400); RDW Coefficient Variation 12.5 % (11.7-14.2); RDW Standard Deviation 39.6 fL (35.1-46.3)
[2025-01-21 21:01] LABS: Alanine Aminotransfer (ALT/SGP 37.0 U/L (12-78); Albumin, Blood 3.8 g/dL (3.4-5.0); Albumin/Globulin Ratio 0.9 (0.8-1.8); Anion Gap 7.0 mmol/L (3-11); Aspartate Aminotrans (AST/SGOT 49.0 U/L (12-37); Bilirubin, Total 0.4 mg/dL (0.1-1.0); Blood Urea Nitrogen 9.0 mg/dL (8-24); CO2, Blood 27.0 mmol/L (21-32); Calcium, Blood 8.8 mg/dL (8.5-10.1); Chloride, Blood 105.0 mmol/L (98-108); Creatinine, Blood 0.83 mg/dL (0.60-1.20); Globulin, Blood 4.1 g/dL (2.2-4.0); Glucose, Blood 104.0 mg/dL (70-99); Potassium, Blood 3.7 mmol/L (3.5-5.5); Sodium, Blood 135.0 mmol/L (136-145); Total Protein, Blood 7.9 g/dL (6.4-8.2)
[2025-01-21 23:30] VITALS: BP 118/79
== END 2025-01-21 23:37 | disposition other institution (70) ==
LOC: ER 19:16
PROVIDERS: Student in an Organized Health Care Education/Training Program
DX: R07.89 Other chest pain (principal); F41.9 Anxiety disorder, unspecified; Z79.899 Other long term (current) drug therapy
CPT/HCPCS: 71046; 80053; 84484; 85025; 93005; 93010; 99285-25